=== PATIENT | male | born 1980 | race African-American/Black ===

== ENCOUNTER 2016-08-05 12:27 | Emergency (ER) | payer OTHER ==
[~2016-08-05] VITALS: Ht 175.3 cm; Wt 77.7 kg
[2016-08-05 13:38] VITALS: BP 129/85
== END 2016-08-05 13:59 | disposition home or self-care (01) ==
LOC: EMS 12:29
DX: S33.5XXA Sprain of ligaments of lumbar spine, initial encounter (principal); M62.830 Muscle spasm of back; X58.XXXA Exposure to other specified factors, initial encounter; Y93.89 Activity, other specified; Y92.89 Other specified places as the place of occurrence of the external cause; Y99.8 Other external cause status
CPT/HCPCS: 99283

== ENCOUNTER 2017-11-11 16:30 | Emergency (ER) | payer OTHER ==
[~2017-11-11] VITALS: Ht 175.3 cm; Wt 79.5 kg
[2017-11-11] MEDS ORDERED: [UNRECOGNIZED DRUG - OTHER] PO (16:34)
[2017-11-11] MEDS ORDERED: OMEG-53 PO (16:34)
[2017-11-11] MEDS ORDERED: GARL200T PO (16:34)
[2017-11-11] MEDS ORDERED: DiphenhydrAMINE HCL 25 MG CAPSULE PO ONE (17:45)
[2017-11-11] MEDS ORDERED: PredniSONE 20 MG TABLET PO ONE (17:45)
[2017-11-11 18:21] VITALS: BP 122/79
== END 2017-11-11 18:20 | disposition home or self-care (01) ==
LOC: EMS 16:30
DX: S50.862A Insect bite (nonvenomous) of left forearm, initial encounter (principal); L08.9 Local infection of the skin and subcutaneous tissue, unspecified; W57.XXXA Bitten or stung by nonvenomous insect and other nonvenomous arthropods, initial encounter; Y93.89 Activity, other specified; Y92.89 Other specified places as the place of occurrence of the external cause; Y99.8 Other external cause status
CPT/HCPCS: 99283; J7512

== ENCOUNTER 2018-07-15 19:19 | Emergency (ER) | payer OTHER ==
[~2018-07-15] VITALS: Ht 175.3 cm; Wt 77.3 kg
[~2018-07-15 19:19] MED LIST: GARL200T PO; OMEG-53 PO; [UNRECOGNIZED DRUG - OTHER] PO
[2018-07-15] MEDS ORDERED: IBUPROFEN 800 MG TABLET PO ONE (21:15)
[2018-07-15] MEDS ORDERED: POVIDONE-IODINE 10% 15 ML SOLUTION UD TP ONE (21:30)
[2018-07-15 22:25] VITALS: BP 131/72
== END 2018-07-15 22:38 | disposition home or self-care (01) ==
LOC: EMS 19:20
DX: S51.852A Open bite of left forearm, initial encounter (principal); Y04.1XXA Assault by human bite, initial encounter; Y93.89 Activity, other specified; Y92.218 Other school as the place of occurrence of the external cause; Y99.0 Civilian activity done for income or pay

== ENCOUNTER 2018-10-13 19:33 | Emergency (ER) | payer OTHER ==
[~2018-10-13] VITALS: Ht 175.3 cm; Wt 75.0 kg
[2018-10-13] MEDS ORDERED: ACETAMINOPHEN 500 MG TABLET PO ONE (20:30)
[2018-10-13 20:41] VITALS: BP 127/77
[2018-10-13 21:42] LABS: INFLUENZA TYPE A NEGATIVE FOR TYPE A (NEGATIVE); INFLUENZA TYPE B NEGATIVE FOR TYPE B (NEGATIVE)
== END 2018-10-13 21:41 | disposition home or self-care (01) ==
LOC: EMS 19:34
DX: J31.0 Chronic rhinitis (principal); J06.9 Acute upper respiratory infection, unspecified
CPT/HCPCS: 87804; 93005